=== PATIENT | female | born 1955 ===

== ENCOUNTER 2022-01-23 05:50 | Day surgery (SDC) | payer OTHER ==
[~2022-01-23] VITALS: Ht 160 cm; Wt 78.0 kg
[~2022-01-23 05:50] MED LIST: CRESTOR10 MG; PEPCID AC20 MG; PROTONIX40 M1; REGLAN5 MG/5 ML; TENORMIN25 MG PO
== END 2022-01-23 15:35 | disposition home or self-care (01) ==
LOC: CIR.AMB 05:50
PROVIDERS: ATTEND Specialist
DX: N84.0 Polyp of corpus uteri (principal); Z20.822 Contact with and (suspected) exposure to COVID-19; I10 Essential (primary) hypertension; R73.03 Prediabetes; M19.90 Unspecified osteoarthritis, unspecified site; K21.9 Gastro-esophageal reflux disease without esophagitis